=== PATIENT | male | born 1990 | race Two or more races ===

== ENCOUNTER 2024-03-16 13:05 | Emergency (ER) | payer MEDICAID, OTHER ==
[~2024-03-16] VITALS: Ht 167.6 cm; Wt 81.8 kg
[2024-03-16 13:20] VITALS: TEMP 98
[2024-03-16] MEDS: ONDANSETRON HCL 4 MG/2 ML VIAL IV ONE (14:00)
[2024-03-16] MEDS: HYDROcodone-ACET 10/325MG TAB PO ONE (14:00)
[2024-03-16] MEDS: SODIUM CHLORIDE 0.9% 1,000 ML IV ONE (14:04)
[2024-03-16] MEDS: LORazepam 2MG/ML-1ML VIAL IV ONE (14:05)
[2024-03-16] MEDS: SODIUM CHLORIDE 0.9% 1,000 ML IVB ONE (14:21)
[2024-03-16 14:24] LABS: Basophils # (auto) 0 10 ^3/uL (0-0.2); Basophils % (auto) 0.1 % (0.0-2.0); Eosinophils # (auto) 0.1 10 ^3/uL (0-0.8); Eosinophils % (auto) 0.3 % (0.0-7.0); Hematocrit 48.7 % (41.0-53.0); Hemoglobin 16.2 g/dL (13.5-17.5); Lymphocytes # (auto) 1.1 10 ^3/uL (0.4-5.4); Lymphocytes % (auto) 6.9 % (10.0-50.0); Mean Corpuscular Hemoglobin 32.1 pg (28.0-32.0); Mean Corpuscular Hgb Conc. 33.3 g/dL (32.0-36.0); Mean Corpuscular Volume 96.2 fL (80.0-100.0); Monocytes % (auto) 6.5 % (0.0-12.0); Neutrophils # (auto) 13.3 10 ^3/uL (1.6-8.6); Neutrophils % (auto) 86.2 % (37.0-80.0); Nucleated Red Blood Cells % 0.1 %; Red Blood Cells 5.06 10^6/uL (4.5-5.90); Red Cell Distribution Width 13.3 % (11.8-14.3); White Blood Cell 15.5 10^3/uL (4.4-10.8)
[2024-03-16 14:39] LABS: INR 1.04 (0.9-1.15); Partial Thromboplastin Time 26.5 SEC (24.5-34.5)
[2024-03-16 14:46] LABS: Alanine Aminotransferase 43 U/L (7-40); Albumin 4.2 g/dL (3.2-4.8); Alkaline Phosphatase 44 U/L (46-116); Anion Gap 1 (5-15); Aspartate Aminotransferase 43 U/L (13-40); BUN/Creatinine Ratio 6.5 (10.0-20.0); Blood Urea Nitrogen 6 mg/dL (9-23); Calcium 9.2 mg/dL (8.7-10.4); Carbon Dioxide 26 mmol/L (20-30); Chloride 105 mmol/L (98-107); Glucose 131 mg/dL (74-106); Magnesium 1.8 mg/dL (1.6-2.6); Potassium 4.2 mmol/L (3.5-5.1); Sodium 132 mmol/L (136-145)
[2024-03-16 14:47] LABS: Bilirubin, Total 0.2 mg/dL (0.2-1.0)
[2024-03-16 15:06] LABS: Blood Alcohol 4.2 mg/dL (<10)
[2024-03-16 16:02] VITALS: RESP 22; O2SAT 92
[2024-03-16 16:19] LABS: Amphetamine Screen, Urine Neg (NEGATIVE)
[2024-03-16 16:20] LABS: Barbiturate Scree,Urine Neg (NEGATIVE); Benzodiazephine Screen, Urine Neg (NEGATIVE); Cannabinoid Screen, Urine Neg (NEGATIVE); Cocaine Screen, Urine Neg (NEGATIVE); Opiate Scree,Urine Pos (NEGATIVE); Phencyclidine Screen, Urine Neg (NEGATIVE)
[2024-03-16 17:46] VITALS: BP 126/71; PULSE 122
== END 2024-03-16 18:50 | disposition left against medical advice (07) ==
LOC: EDBD 13:05 → ER 13:05
DX: F15.93 Other stimulant use, unspecified with withdrawal (principal); F10.939 Alcohol use, unspecified with withdrawal, unspecified; R56.9 Unspecified convulsions; Z86.2 Personal history of diseases of the blood and blood-forming organs and certain disorders involving the immune mechanism; Z79.899 Other long term (current) drug therapy; Y90.0 Blood alcohol level of less than 20 mg/100 ml
CPT/HCPCS: 36415; 70450; 71045; 80053; 80164; 80307; 80320; 83735; 85025; 85610; 85730; 93005; 96361; 96374; 99285; J2060; J7030